=== PATIENT | female | born 1950 | race Caucasian/White ===

== ENCOUNTER 2022-01-13 17:36 | Emergency (ER) | payer MEDICARE, OTHER ==
[~2022-01-13] VITALS: Ht 160 cm; Wt 62.0 kg
[2022-01-13] MEDS ORDERED: NIRM1TAB PO (21:15)
[2022-01-13 21:26] VITALS: BP 114/59
== END 2022-01-13 21:27 | disposition home or self-care (01) ==
LOC: ER 17:36
DX: U07.1 COVID-19 (principal); Z88.5 Allergy status to narcotic agent
CPT/HCPCS: 99283